=== PATIENT | female | born 1960 | race Caucasian/White ===

== ENCOUNTER 2016-11-11 08:04 | Day surgery (SDC) | payer OTHER ==
[~2016-11-11] VITALS: Ht 170.2 cm; Wt 70.3 kg
[~2016-11-11 08:04] MED LIST: 0.9% Sodium Chloride 1,000 ML IV SCH; PROG50VI2 IM; Sodium Chloride LOK Flush 10 mL Syringe IV PRN; THYR16.2 PO; fentaNYL-PF 50 mCg/mL 2 mL Inj IVPUSH PRN
[2016-11-11 08:45] VITALS: BP 127/61; PULSE 71; O2SAT 100
[2016-11-11 09:38] VITALS: BP 102/65; PULSE 72; RESP 12; O2SAT 97
[2016-11-11 09:47] VITALS: BP 87/63; PULSE 72; RESP 12; O2SAT 96
[2016-11-11 09:50] VITALS: BP 88/59; PULSE 64; RESP 14; O2SAT 98
--- NOTE | 2016-11-11 09:58 | ENDO ---
[address] [address] ENDOSCOPY PROCEDURE PATIENT: AMY TREVIÑO : 1960 MR#: [id number] ADMIT: 11/11/2016 JOB ID: [id number] DATE OF SERVICE: 11/11/2016 PROCEDURE PERFORMED: Esophagogastroduodenoscopy. INDICATION: The patient with a longstanding history of gastroesophageal reflux. ASA CLASSIFICATION: The patient's ASA classification is I. MALLAMPATI SCORE: Mallampati score is 2. MEDICATIONS: 1. Versed 4 mg. 2. Fentanyl 75 mcg. INSTRUMENT USED: [id number]. PROCEDURE DETAILS: After informed consent was obtained, the patient was brought into the GI suite, where she was placed on oxygen via nasal cannula and monitored with continuous pulse oximeter, telemetry, and blood pressure monitoring. A time-out was performed. Then, she was placed in the left lateral decubitus position, and medications were administered for sedation. A bite block was placed. A standard EGD scope was inserted through the bite block and advanced under direct visualization to the second portion of the duodenum without difficulty. FINDINGS: 1. In the proximal portion of the second part of the duodenum there was an approximately 5-6 mm duodenal polyp that was removed with cold biopsy forceps. 2. Normal appearing pylorus, antrum and gastric body. 3. Retroflexed views in the gastric body revealed a small hiatal hernia. 4. The diaphragmatic hiatus was at approximately 41 cm and the GE junction was at 39 cm. The GE junction was regular. There was a partial Schatzki ring there. As the patient had no complaints of dysphagia, this was not disrupted. Additionally, at the GE junction there was a focal area of erythema with edema suggestive of inflammation. This was removed with cold biopsy forceps. The remainder of the esophagus otherwise appeared unremarkable. IMPRESSION: 1. Duodenal polyp. 2. Small hiatal hernia. 3. Focal erythema of gastroesophageal junction. 4. Partial Schatzki ring. RECOMMENDATIONS: 1. Continue PPI. 2. Follow up in GI clinic in 4-6 weeks. COMPLICATIONS: None. ESTIMATED BLOOD LOSS: Less than 5 mL.
--- NOTE | 2016-11-16 14:58 | PATH ---
SURGICAL PATHOLOGY Attending Physician:Steve Carson CASE STATUS: Signed Out PATIENT NAME: AMY TREVIÑO PID: [id number] : 1960 DATE COLLECTED:11/11/2016 15:20 SPECIMEN: 1: Duodenum, Biopsy 2: Esophagus, Biopsy CLINICAL HISTORY: A: DUODENAL POLYP 2ND PORTION B: GE JUNCTION FINAL DIAGNOSIS: 1.DUODENUM POLYP, SECOND PORTION: FRAGMENTS OF NORMAL-APPEARING DUODENUM MUCOSA. Normal delicate mucosal villi present. Negative for significant inflammation, dysplasia and malignancy. 2.GE JUNCTION BIOPSY: FRAGMENTS OF SQUAMOUS MUCOSA AND GASTRIC CARDIA-TYPE MUCOSA FOCALLY POSITIVE FOR SPECIALIZED METAPLASIA OF MARIE' S-TYPE ESOPHAGUS BY ALCIAN BLUE STAIN. Negative for dysplasia and malignancy. Eosinophils are not increased. ICD10 code K22.70 GROSS DESCRIPTION: The specimen is received in two formalin filled containers labeled with the patient's name. 1). Received in formalin and labeled "duodenal polyp second portion" and consists of 3 portions of tissue which aggregate to 0.3 x 0.3 x 0.3 CM. The specimen is entirely submitted in cassette 1A. 2). The specimen is sublabeled "GE junction" and consists of 2 portions of tissue which aggregate to 0.5 x 0.3 x 0.2 CM. The specimen is entirely submitted in cassette 2A. 11/11/2016 [facility] MICRO DESCRIPTION: See diagnosis. ICD-9 CODES: CPT CODES: 1: 97514 2: 34436, 24594 Electronically Signed Out Manny Forman MD [facility] Pathology [facility] [address], [place] [address] Technical component performed at [facility], [facility] [address], [address]
== END 2016-11-11 23:59 | disposition home or self-care (01) ==
LOC: END 08:04
PROVIDERS: ATTEND Internal Medicine Gastroenterology
DX: K31.7 Polyp of stomach and duodenum (principal); K44.9 Diaphragmatic hernia without obstruction or gangrene; K22.2 Esophageal obstruction; K21.9 Gastro-esophageal reflux disease without esophagitis
CPT/HCPCS: 43239; J2250; J7030